=== PATIENT | male | born 1970 | race Hispanic/Latino ===

== ENCOUNTER 2021-10-17 19:23 | Emergency (ER) | payer BC, OTHER ==
[~2021-10-17] VITALS: Ht 167.6 cm; Wt 99.8 kg
[2021-10-17] MEDS ORDERED: ACETAMINOPHEN500 MG PO (19:49)
[2021-10-17] MEDS ORDERED: IBUPROFEN IB200 MG PO (19:49)
== END 2021-10-17 21:58 | disposition home or self-care (01) ==
LOC: FSED 19:33
DX: S39.012A Strain of muscle, fascia and tendon of lower back, initial encounter (principal); V53.5XXA Driver of pick-up truck or van injured in collision with car, pick-up truck or van in traffic accident, initial encounter; Y92.488 Other paved roadways as the place of occurrence of the external cause
CPT/HCPCS: 72100; 99283

== ENCOUNTER 2022-04-13 20:20 | Emergency (ER) | payer BC ==
[~2022-04-13] VITALS: Ht 167.6 cm; Wt 99.8 kg
[~2022-04-13 20:20] MED LIST: ACETAMINOPHEN500 MG PO; IBUPROFEN IB200 MG PO
[2022-04-13] MEDS ORDERED: VALTREX1000 MG PO (21:42)
== END 2022-04-13 22:00 | disposition home or self-care (01) ==
LOC: FSED 20:40
DX: G62.9 Polyneuropathy, unspecified (principal); B02.29 Other postherpetic nervous system involvement; M54.50 Low back pain, unspecified; G89.29 Other chronic pain; E11.65 Type 2 diabetes mellitus with hyperglycemia; K21.9 Gastro-esophageal reflux disease without esophagitis; E78.5 Hyperlipidemia, unspecified; I10 Essential (primary) hypertension
CPT/HCPCS: 36415; 82948; 99282

== ENCOUNTER 2023-04-03 09:29 | Emergency (ER) | payer BC ==
[~2023-04-03] VITALS: Ht 167.6 cm; Wt 99.8 kg
[~2023-04-03 09:29] MED LIST changes: +DICYCLOMINE HCL20 MG PO; +VALTREX1000 MG PO
[2023-04-03] MEDS ORDERED: SODIUM CHLORIDE 0.9% 1000ML 1,000 ML IV STA (09:59)
[2023-04-03] MEDS ORDERED: KETOROLAC TROMETHAMINE 30 MG/ML VIAL IV STA (09:59)
[2023-04-03] MEDS ORDERED: DICYCLOMINE HCL 20 MG/2 ML VIAL IM ONE (10:00)
[2023-04-03] MEDS ORDERED: ONDANSETRON HCL INJ 2MG/ML 2ML 2 MG/ML VIAL IV PRN (10:00)
[2023-04-03 10:39] LABS: BASOPHILS % 0.2 % (0.0-1.0); EOSINOPHILS # (AUTO) 0.1 (0.0-0.4); EOSINOPHILS % 1.3 % (0.0-6.0); HEMATOCRIT 44.1 % (38.2-49.6); HEMOGLOBIN 15.3 g/dL (14.0-18.0); LYMPHOCYTES # (AUTO) 3.9 (1.0-3.2); LYMPHOCYTES % 42.9 % (18.0-39.1); MEAN CORPUSCULAR HGB CONC 34.7 g/dL (31-35); MEAN CORPUSCULAR VOLUME 89.5 fL (81-99); MONOCYTES # (AUTO) 0.7 (0.2-0.8); MONOCYTES % 7.2 % (4.4-11.3); NEUTROPHILS # (AUTO) 4.4 (2.1-6.9); PLATELET COUNT 334 x10e3/uL (140-360); RED BLOOD COUNT 4.93 x10e6/uL (4.3-5.7); RED CELL DISTRIBUTION WIDTH 12.1 % (11.7-14.4)
[2023-04-03 11:12] LABS: ALBUMIN 4.1 g/dL (3.5-5.0); ALBUMIN/GLOBULIN RATIO 1.2 (0.8-2.0); ANION GAP 15.1 mmol/L (8-16); CALCIUM 9.1 mg/dL (8.4-10.2); CREATININE, SERUM 0.88 mg/dL (0.72-1.25); POTASSIUM 4.1 mmol/L (3.5-5.1)
[2023-04-03] MEDS ORDERED: SODIUM CHLORIDE 0.9% 1000ML 1,000 ML ONE (11:24)
[2023-04-03] MEDS ORDERED: IOPAMIDOL 370 MG/ML 100 ML INFUS..BTL INJ ONE (11:47)
[2023-04-03 13:06] LABS: CLARITY,URINE CLEAR (CLEAR); COLOR,URINE YELLOW (YELLOW); KETONES,URINE TRACE (NEGATIVE); LEUKOCYTE ESTERASE ,URINE NEGATIVE (NEGATIVE); NITRITE,URINE NEGATIVE (NEGATIVE); PROTEIN,URINE DIPSTICK NEGATIVE (NEGATIVE); URINE UROBILINOGEN 0.2 mg/dL (0.2 - 1)
[2023-04-03 13:10] LABS: BACTERIA,URINE FEW /HPF; EPITHELIAL CELLS,URINE FEW /LPF; RBC,URINE 0-5 /HPF (0-5); WBC,URINE (MAN) 0-5 /HPF (0-5)
[2023-04-03] MEDS ORDERED: DICYCLOMINE HCL20 MG PO (13:17)
[2023-04-03 13:27] VITALS: BP 137/84; PULSE 84; RESP 17; O2SAT 99
== END 2023-04-03 13:28 | disposition home or self-care (01) ==
LOC: ER 09:44
DX: R10.32 Left lower quadrant pain (principal); I10 Essential (primary) hypertension; E11.65 Type 2 diabetes mellitus with hyperglycemia; E78.5 Hyperlipidemia, unspecified; K21.9 Gastro-esophageal reflux disease without esophagitis; M54.9 Dorsalgia, unspecified; G89.29 Other chronic pain; Z87.442 Personal history of urinary calculi
CPT/HCPCS: 36415; 74177; 80053; 81001; 83690; 85025; 99284; J0500; J1885; J2405; J7030; Q9967

== ENCOUNTER 2024-07-05 21:21 | Emergency (ER) | payer BC ==
[~2024-07-05] VITALS: Ht 167.6 cm; Wt 94.3 kg
[~2024-07-05 21:21] MED LIST changes: +CELEBREX100 MG PO; +METHOCARBAMOL750 MG PO
[2024-07-05 21:57] LABS: BASOPHILS % 0.3 % (0.0-1.0); EOSINOPHILS # (AUTO) 0.3 (0.0-0.4); EOSINOPHILS % 3.4 % (0.0-6.0); HEMOGLOBIN 14.3 g/dL (14.0-18.0); LYMPHOCYTES # (AUTO) 5.1 (1.0-3.2); LYMPHOCYTES % 57.7 % (18.0-39.1); MEAN CORPUSCULAR HEMOGLOBIN 30.6 pg (28-32); MEAN CORPUSCULAR VOLUME 89.7 fL (81-99); MONOCYTES # (AUTO) 0.6 (0.2-0.8); MONOCYTES % 6.8 % (4.4-11.3); NEUTROPHILS # (AUTO) 2.8 (2.1-6.9); NEUTROPHILS % 31.7 % (38.7-80.0); PLATELET COUNT 292 x10e3/uL (140-360); RED BLOOD COUNT 4.68 x10e6/uL (4.3-5.7); WHITE BLOOD COUNT 8.88 x10e3/uL (4.8-10.8)
[2024-07-05 22:18] LABS: ALANINE AMINOTRANSFERASE 34 IU/L (0-55); ALBUMIN 3.9 g/dL (3.5-5.0); ALBUMIN/GLOBULIN RATIO 1.3 (0.8-2.0); ALKALINE PHOSPHATASE 75 IU/L (40-150); ANION GAP 12.1 mmol/L (8-16); BILIRUBIN,TOTAL 0.6 mg/dL (0.2-1.2); BLOOD UREA NITROGEN 10 mg/dL (7-26); BUN/CREATININE RATIO 11 (6-25); CALCIUM 9.4 mg/dL (8.4-10.2); CARBON DIOXIDE 27 mmol/L (22-29); CHLORIDE 101 mmol/L (98-107); CREATINE KINASE 117 IU/L (30-200); CREATININE, SERUM 0.93 mg/dL (0.72-1.25); EST GLOMERULAR FILTRATION RATE 99 ML/MIN (>=60); GLUCOSE 209 mg/dL (74-118); POTASSIUM 4.1 mmol/L (3.5-5.1); SODIUM 136 mmol/L (136-145); TOTAL PROTEIN 6.8 g/dL (6.5-8.1)
[2024-07-05] MEDS ORDERED: IOPAMIDOL 370 MG/ML 100 ML INFUS..BTL INJ ONE (23:00)
[2024-07-05 23:52] LABS: TROPONIN I < 0.001 ng/mL (0-0.300)
[2024-07-06 02:21] VITALS: PULSE 75; RESP 20; TEMP 98.2; O2SAT 99
[2024-07-06] MEDS: ASPIRIN 325 MG TAB PO ONE (02:21)
== END 2024-07-06 03:00 | disposition other institution (70) ==
LOC: ER 21:32
DX: R20.2 Paresthesia of skin (principal); R07.89 Other chest pain; R27.0 Ataxia, unspecified; E11.65 Type 2 diabetes mellitus with hyperglycemia; I10 Essential (primary) hypertension; E78.5 Hyperlipidemia, unspecified; K21.9 Gastro-esophageal reflux disease without esophagitis; M54.9 Dorsalgia, unspecified; G89.29 Other chronic pain; Z87.442 Personal history of urinary calculi
CPT/HCPCS: 36415; 70496; 70498; 71045; 80053; 82550; 83880; 84484; 85025; 93005; 99284; Q9967

== ENCOUNTER 2024-11-10 01:06 | Emergency (ER) | payer BC ==
[~2024-11-10] VITALS: Ht 167.6 cm; Wt 94.3 kg
[2024-11-10 01:10] VITALS: PULSE 71; RESP 18; TEMP 98.3; O2SAT 98
[2024-11-10] MEDS ORDERED: CEPHALEXIN500 MG PO (01:55)
[2024-11-10] MEDS ORDERED: ULTRAM 50MG50 MG PO ×2 (01:55→02:00)
[2024-11-10] MEDS: TETANUS/DIPHTHERIA TOX ADULT 0.5 ML SYR IM ONE (02:01)
[2024-11-10] MEDS: TRAMADOL HCL 50 MG TAB PO ONE (02:06)
== END 2024-11-10 02:09 | disposition home or self-care (01) ==
LOC: ER 01:13
DX: T20.17XA Burn of first degree of neck, initial encounter (principal); T22.152A Burn of first degree of left shoulder, initial encounter; T31.0 Burns involving less than 10% of body surface; W39.XXXA Discharge of firework, initial encounter; Y92.89 Other specified places as the place of occurrence of the external cause; I10 Essential (primary) hypertension; E11.9 Type 2 diabetes mellitus without complications; E78.5 Hyperlipidemia, unspecified; K21.9 Gastro-esophageal reflux disease without esophagitis; M54.9 Dorsalgia, unspecified; G89.29 Other chronic pain; Z87.442 Personal history of urinary calculi
CPT/HCPCS: 90471; 90714; 99283